=== PATIENT | female | born 1945 | race Caucasian/White ===

== ENCOUNTER → 2016-12-20 | Outpatient (CLI) | payer OTHER ==
[~2016-12-20] MED LIST: LEVO50TA7 PO; SIMV10TA84 PO
[2016-12-20 11:42] LABS: INR 1.01 (0.9-1.15); Prothrombin Time 10.4 sec (9.37-12.3)
[2016-12-20 11:43] LABS: Basophils # (auto) 0 uL; Basophils % (auto) 0.6 % (0.0-2.0); Eosinophils # (auto) 0.3 uL; Eosinophils % (auto) 4.1 % (0.0-7.0); Hematocrit 42.8 % (36.0-46.0); Hemoglobin 14.1 g/dL (12.2-16.2); Lymphocytes # (auto) 2.7 uL; Lymphocytes % (auto) 42.6 % (10.0-50.0); Mean Corpuscular Hemoglobin 30.9 pg (28.0-32.0); Mean Corpuscular Hgb Conc. 32.8 g/dL (32.0-36.0); Mean Platelet Volume 9.4 fL (7.4-10.4); Monocytes # (auto) 0.4 uL; Monocytes % (auto) 6.5 % (0.0-12.0); Neutrophils # (auto) 2.9 uL; Neutrophils % (auto) 46.2 % (37.0-80.0); Platelet Count (auto) 201 10^3/uL (140-450); Red Cell Distribution Width 14.1 % (11.6-16.0); White Blood Cell 6.2 10^3/uL (4.4-10.8)
[2016-12-20 11:53] LABS: Urine Bilirubin Negative (Negative); Urine Color Yellow (Yellow); Urine Glucose Normal (Normal); Urine Ketone Negative (Negative); Urine Nitrite Negative (Negative); Urine RBC 1 /hpf (0 - 4); Urine Squamous Epithelial Cell FEW /hpf (<5); Urine Urobilinogen Normal (Negative); Urine pH 5.5 (5.0-8.0)
[2016-12-20 11:54] LABS: Urine Blood 1+ /uL (Negative)
[2016-12-20 12:13] LABS: Albumin 3.4 g/dL (3.4-5.0); BUN/Creatinine Ratio 9.9; Bilirubin, Total 0.5 mg/dL (0.2-1.0); Potassium 4.2 mmol/L (3.5-5.1); Total Protein 7.1 g/dL (6.4-8.2)
== END | disposition home or self-care (01) ==
LOC: LAB 08:06
PROVIDERS: ATTEND Internal Medicine
DX: Z00.00 Encounter for general adult medical examination without abnormal findings (principal); E78.2 Mixed hyperlipidemia; I10 Essential (primary) hypertension; E55.9 Vitamin D deficiency, unspecified
CPT/HCPCS: 36415; 80053; 80061; 81001; 82306; 84443; 85025; 85610; 85730

== ENCOUNTER → 2017-01-22 | Outpatient (CLI) | payer OTHER | LOC: XYW 10:38 | PROVIDERS: ATTEND Internal Medicine | DX: I51.7 Cardiomegaly (principal); I35.0 Nonrheumatic aortic (valve) stenosis | CPT/HCPCS: 93306 ==

== ENCOUNTER → 2017-02-11 | Outpatient (CLI) | payer OTHER ==
[2017-02-11 11:33] LABS: Urine Bilirubin Negative (Negative); Urine Blood Negative /uL (Negative); Urine Color Yellow (Yellow); Urine Glucose Normal (Normal); Urine Ketone Negative (Negative); Urine Nitrite Negative (Negative); Urine RBC 1 /hpf (0 - 4); Urine Urobilinogen Normal (Negative); Urine pH 6.5 (5.0-8.0)
== END | disposition home or self-care (01) ==
LOC: LAB 10:16
PROVIDERS: ATTEND Internal Medicine
DX: N39.0 Urinary tract infection, site not specified (principal)
CPT/HCPCS: 81001

== ENCOUNTER → 2017-03-05 | Outpatient (CLI) | payer OTHER ==
[~2017-03-05] MED LIST changes: +LORA-354 PO; +NAPR220C PO
[2017-03-05 09:34] LABS: Basophils # (auto) 0 uL; Basophils % (auto) 0.9 % (0.0-2.0); Eosinophils # (auto) 0.3 uL; Eosinophils % (auto) 5.5 % (0.0-7.0); Hematocrit 43.5 % (36.0-46.0); Hemoglobin 14.5 g/dL (12.2-16.2); Lymphocytes # (auto) 1.8 uL; Lymphocytes % (auto) 32.2 % (10.0-50.0); Mean Corpuscular Hemoglobin 31.5 pg (28.0-32.0); Mean Corpuscular Hgb Conc. 33.2 g/dL (32.0-36.0); Mean Platelet Volume 9.1 fL (7.4-10.4); Monocytes # (auto) 0.4 uL; Monocytes % (auto) 6.9 % (0.0-12.0); Neutrophils # (auto) 3.1 uL; Neutrophils % (auto) 54.5 % (37.0-80.0); Platelet Count (auto) 180 10^3/uL (140-450); Red Cell Distribution Width 13.5 % (11.6-16.0); White Blood Cell 5.7 10^3/uL (4.4-10.8)
[2017-03-05 09:48] LABS: INR 0.96 (0.9-1.15); Partial Thromboplastin Time 24.3 sec (22.64-33.71); Prothrombin Time 10.4 sec (9.37-12.3)
[2017-03-05 10:10] LABS: Albumin 3.5 g/dL (3.4-5.0); BUN/Creatinine Ratio 12.7; Bilirubin, Total 0.5 mg/dL (0.2-1.0); Calcium 8.5 mg/dL (8.5-10.1); Potassium 4.1 mmol/L (3.5-5.1); Total Protein 7.1 g/dL (6.4-8.2)
== END | disposition home or self-care (01) ==
LOC: LAB 08:28
PROVIDERS: ATTEND Internal Medicine Cardiovascular Disease
DX: Z01.810 Encounter for preprocedural cardiovascular examination (principal); I35.2 Nonrheumatic aortic (valve) stenosis with insufficiency
CPT/HCPCS: 36415; 80053; 85025; 85610; 85730

== ENCOUNTER → 2017-03-08 | Day surgery (SDC) | payer OTHER ==
[~2017-03-08] VITALS: Ht 165.1 cm; Wt 93.0 kg
[~2017-03-08] MED LIST changes: +ANGIOMAX 250 MG VIAL IV ONE; +ATROPINE SULF 0.5 MG/5ML SYR ONE; +IODIXANOL 320MG/ML 100ML BTL IV ONE; +LIDOCAINE 2%HCL (LOCAL ANESTH.) INJ 20ML MDV ONE; +MIDAZOLAM HCL 1MG/1ML-2 ML VIAL ONE; +ONDANSETRON HCL 4 MG/2 ML VIAL IV ONE; +SODIUM CHL 0.9% 0 ML ONE; +diphenhdrAMINE HCL 50 MG/1 ML VL ONE; +fentaNYL CITRATE 100 MCG/2 ML VL ONE
== END | disposition home or self-care (01) ==
LOC: CATH 07:49
PROVIDERS: ATTEND Internal Medicine Cardiovascular Disease
DX: I35.0 Nonrheumatic aortic (valve) stenosis (principal); I35.1 Nonrheumatic aortic (valve) insufficiency; Z87.891 Personal history of nicotine dependence; E66.9 Obesity, unspecified; N28.9 Disorder of kidney and ureter, unspecified; Z90.5 Acquired absence of kidney
CPT/HCPCS: 93458; C1751; C1760; C1769; C1894; J0461; J1200; J1644; J2250; J3010; Q9967; 99152

== ENCOUNTER → 2017-07-09 | Outpatient (CLI) | payer OTHER ==
[~2017-07-09] MED LIST changes: -ANGIOMAX 250 MG VIAL IV ONE; -ATROPINE SULF 0.5 MG/5ML SYR ONE; -IODIXANOL 320MG/ML 100ML BTL IV ONE; -LIDOCAINE 2%HCL (LOCAL ANESTH.) INJ 20ML MDV ONE; -MIDAZOLAM HCL 1MG/1ML-2 ML VIAL ONE; -ONDANSETRON HCL 4 MG/2 ML VIAL IV ONE; -SODIUM CHL 0.9% 0 ML ONE; -diphenhdrAMINE HCL 50 MG/1 ML VL ONE; -fentaNYL CITRATE 100 MCG/2 ML VL ONE
[2017-07-09 13:53] LABS: Basophils # (auto) 0.1 uL; Basophils % (auto) 1.1 % (0.0-2.0); Eosinophils # (auto) 0.2 uL; Eosinophils % (auto) 3.9 % (0.0-7.0); Hemoglobin 14.3 g/dL (12.2-16.2); Lymphocytes # (auto) 2.2 uL; Lymphocytes % (auto) 34.9 % (10.0-50.0); Mean Corpuscular Hemoglobin 31.2 pg (28.0-32.0); Mean Corpuscular Hgb Conc. 33.2 g/dL (32.0-36.0); Mean Corpuscular Volume 93.9 fL (80.0-100.0); Mean Platelet Volume 8.2 fL (6.9-10.8); Monocytes # (auto) 0.5 uL; Monocytes % (auto) 8.2 % (0.0-12.0); Neutrophils # (auto) 3.3 uL; Neutrophils % (auto) 51.9 % (37.0-80.0); Nucleated Red Blood Cells % 0.1 %; Platelet Count (auto) 186 10^3/uL (140-450); Red Cell Distribution Width 13.9 % (11.8-14.3); White Blood Cell 6.3 10^3/uL (4.4-10.8)
[2017-07-09 14:08] LABS: Urine Bilirubin Negative (Negative); Urine Blood Negative /uL (Negative); Urine Color Yellow (Yellow); Urine Glucose Normal (Normal); Urine Ketone Negative (Negative); Urine Nitrite Negative (Negative); Urine RBC <1 /hpf (0 - 4); Urine Squamous Epithelial Cell FEW /hpf (<5); Urine Urobilinogen Normal (Negative)
[2017-07-09 14:09] LABS: INR 0.97 (0.9-1.15); Partial Thromboplastin Time 28.1 sec (22.64-33.71); Prothrombin Time 10.6 sec (9.37-12.3)
[2017-07-09 14:29] LABS: Albumin 3.5 g/dL (3.4-5.0); BUN/Creatinine Ratio 12.8; Bilirubin, Total 0.6 mg/dL (0.2-1.0); Calcium 8.9 mg/dL (8.5-10.1); Potassium 3.9 mmol/L (3.5-5.1); Total Protein 7.5 g/dL (6.4-8.2)
== END | disposition home or self-care (01) ==
LOC: LAB 13:21
PROVIDERS: ATTEND Internal Medicine
DX: Z01.818 Encounter for other preprocedural examination (principal); R79.1 Abnormal coagulation profile
CPT/HCPCS: 36415; 80053; 81001; 85025; 85610; 85730

== ENCOUNTER → 2017-11-04 | Outpatient (CLI) | payer OTHER ==
[2017-11-04 11:09] LABS: Basophils # (auto) 0.1 uL; Basophils % (auto) 1.1 % (0.0-2.0); Eosinophils # (auto) 0.2 uL; Eosinophils % (auto) 3.3 % (0.0-7.0); Hematocrit 46.4 % (36.0-46.0); Hemoglobin 15.2 g/dL (12.2-16.2); Lymphocytes # (auto) 1.7 uL; Lymphocytes % (auto) 33.3 % (10.0-50.0); Mean Corpuscular Hgb Conc. 32.8 g/dL (32.0-36.0); Mean Corpuscular Volume 94.5 fL (80.0-100.0); Monocytes # (auto) 0.3 uL; Monocytes % (auto) 6.9 % (0.0-12.0); Neutrophils # (auto) 2.8 uL; Neutrophils % (auto) 55.4 % (37.0-80.0); Nucleated Red Blood Cells % 0.2 %; Platelet Count (auto) 187 10^3/uL (140-450); Red Blood Cells 4.91 10^6/uL (4.0-5.20); Red Cell Distribution Width 14.4 % (11.8-14.3)
[2017-11-04 11:45] LABS: Albumin 3.7 g/dL (3.4-5.0); BUN/Creatinine Ratio 9.7; Bilirubin, Total 0.6 mg/dL (0.2-1.0); Calcium 9.1 mg/dL (8.5-10.1); Potassium 4.4 mmol/L (3.5-5.1); Total Protein 7.8 g/dL (6.4-8.2)
== END ==
LOC: LAB 10:33
PROVIDERS: ATTEND Internal Medicine
DX: R79.89 Other specified abnormal findings of blood chemistry (principal); Z90.49 Acquired absence of other specified parts of digestive tract; Z90.710 Acquired absence of both cervix and uterus
CPT/HCPCS: 36415; 80053; 80061; 82270; 84443; 85025

== ENCOUNTER → 2017-11-12 | Outpatient (CLI) | payer OTHER | END | disposition home or self-care (01) | LOC: XYW 08:38 | DX: I11.9 Hypertensive heart disease without heart failure (principal) | CPT/HCPCS: 93306 ==

== ENCOUNTER 2022-05-12 16:51 | Emergency (ER) | payer OTHER ==
[~2022-05-12] VITALS: Ht 162.6 cm; Wt 91.0 kg
[2022-05-12 19:50] LABS: Basophils # (auto) 0 10 ^3/uL (0-0.2); Basophils % (auto) 0.5 % (0.0-2.0); Eosinophils # (auto) 0.1 10 ^3/uL (0-0.8); Eosinophils % (auto) 1.1 % (0.0-7.0); Hematocrit 46.1 % (36.0-46.0); Hemoglobin 14.9 g/dL (12.2-16.2); Lymphocytes # (auto) 1.3 10 ^3/uL (0.4-5.4); Lymphocytes % (auto) 14.5 % (10.0-50.0); Mean Corpuscular Hemoglobin 30.9 pg (28.0-32.0); Mean Corpuscular Hgb Conc. 32.4 g/dL (32.0-36.0); Mean Corpuscular Volume 95.4 fL (80.0-100.0); Monocytes # (auto) 0.4 10 ^3/uL (0-1.3); Monocytes % (auto) 4.7 % (0.0-12.0); Neutrophils # (auto) 7.2 10 ^3/uL (1.6-8.6); Neutrophils % (auto) 79.2 % (37.0-80.0); Nucleated Red Blood Cells % 0.1 %; Red Blood Cells 4.83 10^6/uL (4.0-5.20); Red Cell Distribution Width 13.6 % (11.8-14.3); White Blood Cell 9.1 10^3/uL (4.4-10.8)
[2022-05-12 20:00] LABS: Urine Bacteria FEW /hpf (None Seen); Urine Blood Negative /uL (Negative); Urine Specific Gravity 1.004 (1.001-1.035); Urine WBC 21 /hpf (0 - 5)
[2022-05-12 20:07] LABS: Alanine Aminotransferase 19 U/L (13-56); Albumin 3.5 g/dL (3.4-5.0); Anion Gap 8 (5-15); Aspartate Aminotransferase 18 U/L (15-37); BUN/Creatinine Ratio 8.4; Blood Urea Nitrogen 8 mg/dL (7-18); Carbon Dioxide 26 mmol/L (21-32); Chloride 110 mmol/L (98-107); GFR African American 73 mL/min; GFR Non-African American 60 mL/min; Glucose 128 mg/dL (74-106); Potassium 4.1 mmol/L (3.5-5.1); Sodium 144 mmol/L (136-145)
[2022-05-12 20:10] LABS: Alkaline Phosphatase 133 U/L (45-117); Bilirubin, Total 0.4 mg/dL (0.2-1.0); Total Protein 7.3 g/dL (6.4-8.2)
[2022-05-12 21:30] VITALS: BP 156/55
[2022-05-12] MEDS ORDERED: CEPH-509 PO (21:40)
== END 2022-05-12 22:09 | disposition home or self-care (01) ==
LOC: ER 16:51 → EDBD 16:51 → ER 22:09
DX: R53.1 Weakness (principal); N39.0 Urinary tract infection, site not specified; I10 Essential (primary) hypertension; I25.2 Old myocardial infarction; E03.9 Hypothyroidism, unspecified; Z90.49 Acquired absence of other specified parts of digestive tract; Z90.710 Acquired absence of both cervix and uterus; Z90.89 Acquired absence of other organs; Z86.73 Personal history of transient ischemic attack (TIA), and cerebral infarction without residual deficits; Z79.899 Other long term (current) drug therapy
CPT/HCPCS: 36415; 71045; 80053; 81001; 84484; 85025; 93005

== ENCOUNTER 2023-06-15 14:12 | Emergency (ER) | payer OTHER ==
[~2023-06-15] VITALS: Ht 165.1 cm; Wt 86.3 kg
[~2023-06-15 14:12] MED LIST changes: +CEPH-509 PO; +SIMV10TA20 PO; -SIMV10TA84 PO
[2023-06-15 14:28] VITALS: BP 117/65; PULSE 71
[2023-06-15 14:43] VITALS: RESP 18
[2023-06-15] MEDS ORDERED: cefTRIAXone SOD 1,000 MG VL IM ONE (16:30)
[2023-06-15] MEDS ORDERED: LEVO500T91 PO (16:41)
[2023-06-15] MEDS ORDERED: PRED20TA2 PO (16:41)
[2023-06-15] MEDS ORDERED: PROM1SOL4 PO (16:41)
[2023-06-15 16:59] VITALS: O2SAT 98
== END 2023-06-15 16:59 | disposition home or self-care (01) ==
LOC: ER 14:12
DX: J20.9 Acute bronchitis, unspecified (principal); J03.90 Acute tonsillitis, unspecified; I10 Essential (primary) hypertension; I25.2 Old myocardial infarction; E03.9 Hypothyroidism, unspecified; Z86.73 Personal history of transient ischemic attack (TIA), and cerebral infarction without residual deficits; Z90.49 Acquired absence of other specified parts of digestive tract; Z90.710 Acquired absence of both cervix and uterus; Z90.89 Acquired absence of other organs
CPT/HCPCS: 71046; 96372; 99283; J0696

== ENCOUNTER 2024-11-26 19:50 | Inpatient (IN) | payer OTHER ==
[~2024-11-26] VITALS: Ht 167.6 cm; Wt 87.0 kg
[~2024-11-26 19:50] MED LIST changes: +LEVO500T91 PO; +PRED20TA2 PO; +PROM1SOL4 PO
--- NOTE | 2024-11-26 20:47 | ED.PDOC ---
SOB-HPI HPI Comments Howard: HPI: Poor Historian. 79-year-old female presents to emergency department by ambulance from home for two day history of cough and nonspecific headache and fever of 100.4. Cough is nonproductive. Denies sick contacts. HPI: 79y F who presents to the ED via EMS for chief complaint of cough and headaches. Pt has the following course of events: -pt states she has been having cough with associated headache for the past 2 days with associated productive cough and noted pain with cough - pt states symptoms persisted since and called EMS - EMS brought pt to ED with no interventions performed -pt in the ED, has noted temp of 100.4F and BP noted to be 146/69 with all other vitals in normal range and pt in no noted respiratory distress and denies any recent sick contacts past medical history: bronchitis, HTN, hyperlipidemia past surgical history: nephrectomy medications: tramadol, Lipitor, Lasix, asa allergies: denies social history: denies tobacco use, denies ETOH use, denies drug use REVIEW OF SYSTEMS: CONSTITUTIONAL: Denies acute: fever, diaphoresis, chills, HEAD: Denies acute: , photophobia Eyes: Denies acute: Double vision, vision loss, eye pain, eye discharge. EARS: Denies acute: tinnitus, hearing loss, ear discharge, ear pain, THROAT: Denies acute: sore throat, swelling, difficulty swallowing , pain with swallowing, change in voice. NECK: Denies acute: neck pain, neck swelling, stiff neck. HEART: Denies acute : chest pain, palpitations, LUNGS: Denies acute: SOB, wheezing, , hemoptysis ABDOMEN: Denies acute: abdominal pain, Nausea, Vomiting, diarrhea, melena , hematemesis, hematochezia SKIN: Denies acute: rash, redness, lesions, itchiness. EXTREMITIES: Denies acute: calf pain, numbness, tingling, weakness, denies pain in extremity. Denies acute: Low back pain. Neuro: Denies acute: focal neurological deficit, motor or sensory focal neurological deficit, tremors, seizure like activity, confusion, dizziness, change in mental status, loss of bowel or bladder function, cauda equina like symptoms. : Denies acute: dysuria, hematuria, flank pain, increase in urinary frequency. PSYCH: Denies acute: hallucination, suicidal ideation, homicidal ideation. FEMALE: Denies acute: abnormal vaginal bleeding, foul odor, unusual discharge. PHYSICAL EXAM: General: no acute distress, awake and alert. Head: normocephalic, atraumatic. Neck: supple, trachea is midline, no swelling. Throat: Normal phonation. Eyes:, no erythema, no purulent discharge, no proptosis, no icterus. Heart: regular rate, regular rhythm, no significant murmur appreciated. Lungs: no apparent respiratory distress, Able to speak in full sentences. No wheezing, no rhonchi, no crackles. No stridors Clear to auscultation bilaterally. Abdomen: non tender to palpation, non distended, soft, no guarding, no rebound, + bowel sounds. Neuro: Awake, Alert, oriented to name, self, situation, follows commands GCS=15. Speech is normal. Skin: no petechia, no purpura, no cyanosis, non-pale, not jaundice. Lower extremities: --no - Pitting edema no deformity, no focal swelling, no calf TTP. Makes eye contact. moves all four extremities. Face: no apparent facial droop. ED COURSE: Chief Complaint: Flu like Time Seen by MD: 20:04 Reviewed notes: Nurses Notes, Allergies Information Source: Patient, Emergency Med Personnel Mode of Arrival: EMS Past Medical History PAST MEDICAL HISTORY: High Lipids, HTN SAMPLE PASTER History: Denies all SAMPLE PASTER Hx Family History Family History: Reviewed,noncontributory to illness Social History Smoker: Non-Smoker Alcohol: Denies ETOH Use Drugs: Denies Drug Use Lives In: Home Was a procedure done? Was a procedure done?: No Differential Dx Differential Diagnosis: Other (DDx include ACS, unstable angina, anxiety, PE, pneumothroax, neoplasm, cardiac ischemia, COPD, asthma, CHF, pleural effusion, tobacco abuse, pneumonia, hypoxia, hypercapnia, anemia., infection/sepsis., pulmonary edema. Asthma, Cardiac tamponade, infection.) X-Ray, Labs, Meds, VS Vital Signs Date Time Temp Pulse Resp B/P (MAP) Pulse Ox O2 Delivery O2 Flow Rate FiO2 11/26/24 19:50 100.4 84 18 146/69 (94) 96 Lab Test 11/27/24 02:16 11/26/24 23:08 11/26/24 22:25 11/26/24 21:01 Range/Units Influenza Type A Antigen Negative Negative Influenza Type B Antigen Negative Negative SARS-CoV-2 Antigen (Rapid) Positive NEGATIVE Blood Gas Specimen Type Arterial Blood Gas Sample Site Right radial Blood Gas Patient Temperature 37.0 Arterial Blood Date Drawn [id number] Arterial Blood pH 7.495 H 7.350-7.450 Arterial Blood Partial Pressure CO2 26.3 L 32.0-45.0 mmHg Arterial Blood Partial Pressure O2 84.1 83.0-108.0 mmHg Arterial Blood HCO3 19.8 L 21.0-28.0 mmol/L Arterial Blood Oxygen Saturation 96.9 94.0-98.0 % Arterial Blood Base Excess -1.6 -2.0-3.0 mmol/L Arterial Blood Oxyhemoglobin 95.6 94.0-98.0 % Arterial Blood Carboxyhemoglobin 0.6 0.5-1.5 % Arterial Blood Methemoglobin 0.7 0.0-1.5 % Naresh Test Yes Blood Gas Total Hemoglobin 15.80 12.0-16.0 g/dL Blood Gas Modality Room air Blood Gas Spontaneous Rate 18 FiO2 % 21.0 Troponin I High Sensitivity 10 9 </=34 ng/L White Blood Count 6.4 4.4-10.8 10^3/uL Red Blood Count 4.88 4.0-5.20 10^6/uL Hemoglobin 15.6 12.2-16.2 g/dL Hematocrit 46.2 H 36.0-46.0 % Mean Corpuscular Volume 94.7 80.0-100.0 fL Mean Corpuscular Hemoglobin 32.0 28.0-32.0 pg Mean Corpuscular Hemoglobin Concent 33.8 32.0-36.0 g/dL Red Cell Distribution Width 13.8 11.8-14.3 % Platelet Count 110 L 140-450 10^3/uL Mean Platelet Volume 9.2 6.9-10.8 fL Neutrophils (%) (Auto) 80.5 H 37.0-80.0 % Lymphocytes (%) (Auto) 10.0 10.0-50.0 % Monocytes (%) (Auto) 9.0 0.0-12.0 % Eosinophils (%) (Auto) 0.1 0.0-7.0 % Basophils (%) (Auto) 0.4 0.0-2.0 % Neutrophils # (Auto) 5.2 1.6-8.6 10 ^3/uL Lymphocytes # (Auto) 0.6 0.4-5.4 10 ^3/uL Monocytes # (Auto) 0.6 0-1.3 10 ^3/uL Eosinophils # (Auto) 0 0-0.8 10 ^3/uL Basophils # (Auto) 0 0-0.2 10 ^3/uL Nucleated Red Blood Cells 0.2 % Sodium Level 139 136-145 mmol/L Potassium Level 3.6 3.5-5.1 mmol/L Chloride Level 107 98-107 mmol/L Carbon Dioxide Level 21 20-31 mmol/L Anion Gap 11 5-15 Blood Urea Nitrogen 7 L 9-23 mg/dL Creatinine 1.00 0.550-1.02 mg/dL Glomerular Filtration Rate Calc 57 >90 mL/min BUN/Creatinine Ratio 7.0 L 10.0-20.0 Serum Glucose 117 H 74-106 mg/dL Lactic Acid Level 1.2 0.4-2.0 mmol/L Calcium Level 9.7 8.7-10.4 mg/dL Magnesium Level 1.9 1.6-2.6 mg/dL Total Bilirubin 0.8 0.2-1.0 mg/dL Aspartate Amino Transferase (AST) 22 13-40 U/L Alanine Aminotransferase (ALT) 10 7-40 U/L Alkaline Phosphatase 129 H 46-116 U/L B-Type Natriuretic Peptide 123.75 0-100 pg/mL Total Protein 7.2 5.7-8.2 g/dL Albumin 4.4 3.2-4.8 g/dL [place] [address] Ph: [phone] DIAGNOSTIC IMAGING Diagnostic Imaging Report : [id number] Signed PATIENT: ANTONIO HOWARD ACCT: [id number] UNIT: [id number] : 1945 LOC: ER ROOM / BED: / AGE / SEX: 79 / F ADM STATUS: REG ER SERVICE 16 ORDERING PHYSICIAN: MAGGIE VALENTIN DO PROCEDURE(s): CXRP - CHEST PORTABLE REASON: cough fever weak ORDER NUMBER(s): [id number], ACCESSION NUMBER(s): [id number] CHEST RADIOGRAPH Indication: cough fever weak Technique: Single frontal view of the chest was obtained COMPARISON: CHEST PORTABLE on DOS: 06/15/23 FINDINGS: Lines and Tubes: Prior sternotomy and aortic valve replacement. Lungs: Clear. Pleura: No effusion. No pneumothorax. Cardiomediastinal contours: Unremarkable Bones: Unremarkable IMPRESSION: No acute disease. ATED BY: BEAR SAWYER MD DICTATED DATE/TIME: 11/26/242102 SIGNED BY: BEAR SAWYER MD SIGNED DATE/TIME: 11/26/242102 CC: Time of 1ST Reevaluation: 04:04 Reevaluation 1ST: Unchanged Patient Education/Counseling: Diagnosis, Treatment Family Education/Counseling: No Family Present Comments Patient presented with the above HPI.---respiratory---workup was initiated. patient was found with the above mentioned diagnosis. the following medications were ordered: please refer to order lists of meds and tests obtained by myself Dr. Valentin. Patient ED course and VS have been stabilized. Patient has been reassessed in the ED and remained in a stable condition. Pertinent incidental findings were discussed with the patient and/or family. Patient/family voices understanding and is agreeable with plan. Patient has been observed in the ED adequate length of time to insure improvement/stability. Escalation of care considered: Consideration of escalation to observation or admission Patient was ADMITTED to the medicine team for further evaluation and treatment of their presentation. All the reports of any imaging studies that were ordered by myself were reviewed by myself. Departure 1 Departure Time of Disposition: 03:39 Impression: Primary Impression: Dyspnea Additional Impression: COVID-19 virus detected Disposition: ADMITTED INPATIENT Admit to: Tele Condition: Guarded Discharged With: Self Critical Care Note Critical Care Time?: No Heart Score Heart Score: Heart Score Response (Comments) Value History Slightly Suspicious 0 EKG Normal 0 Age >65 2 Risk Factors 1 or 2 risk factors 1 Troponin Normal limit 0 Total 3 I personally scribed for MAGGIE VALENTIN DO ([email or web address]) on 11/26/24 at 20:47. Electronically submitted by Kevan Swift ([email or web address]). I personally scribed for MAGGIE VALENTIN DO ([facility]) on 11/26/24 at 21:36. Electronically submitted by Kevan Swift ([facility] MAGGIE VALENTIN DO Nov 26, 2024 20:47
--- NOTE | 2024-11-26 21:05 | DVH ---
CHEST RADIOGRAPH Indication: cough fever weak Technique: Single frontal view of the chest was obtained COMPARISON: CHEST PORTABLE on DOS: 06/15/23 FINDINGS: Lines and Tubes: Prior sternotomy and aortic valve replacement. Lungs: Clear. Pleura: No effusion. No pneumothorax. Cardiomediastinal contours: Unremarkable Bones: Unremarkable IMPRESSION: No acute disease.
[2024-11-26 21:20] LABS: Basophils # (auto) 0 10 ^3/uL (0-0.2); Basophils % (auto) 0.4 % (0.0-2.0); Eosinophils # (auto) 0 10 ^3/uL (0-0.8); Eosinophils % (auto) 0.1 % (0.0-7.0); Hematocrit 46.2 % (36.0-46.0); Hemoglobin 15.6 g/dL (12.2-16.2); Lymphocytes # (auto) 0.6 10 ^3/uL (0.4-5.4); Mean Corpuscular Hgb Conc. 33.8 g/dL (32.0-36.0); Mean Corpuscular Volume 94.7 fL (80.0-100.0); Monocytes # (auto) 0.6 10 ^3/uL (0-1.3); Neutrophils # (auto) 5.2 10 ^3/uL (1.6-8.6); Neutrophils % (auto) 80.5 % (37.0-80.0); Nucleated Red Blood Cells % 0.2 %; Platelet Count (auto) 110 10^3/uL (140-450); Red Blood Cells 4.88 10^6/uL (4.0-5.20); Red Cell Distribution Width 13.8 % (11.8-14.3); White Blood Cell 6.4 10^3/uL (4.4-10.8)
[2024-11-26 21:33] LABS: Alanine Aminotransferase 10 U/L (7-40); Calcium 9.7 mg/dL (8.7-10.4); Carbon Dioxide 21 mmol/L (20-31); Chloride 107 mmol/L (98-107)
[2024-11-26 21:34] LABS: Albumin 4.4 g/dL (3.2-4.8); Anion Gap 11 (5-15); Aspartate Aminotransferase 22 U/L (13-40); Bilirubin, Total 0.8 mg/dL (0.2-1.0); Magnesium 1.9 mg/dL (1.6-2.6); Potassium 3.6 mmol/L (3.5-5.1); Sodium 139 mmol/L (136-145); Total Protein 7.2 g/dL (5.7-8.2)
[2024-11-26 21:41] LABS: Alkaline Phosphatase 129 U/L (46-116); Blood Urea Nitrogen 7 mg/dL (9-23); Glucose 117 mg/dL (74-106)
[2024-11-26 23:35] VITALS: PULSE 62; RESP 16; O2SAT 96
[2024-11-27 00:02] LABS: Base Excess -1.6 mmol/L (-2.0-3.0)
[2024-11-27 03:32] LABS: COVID19 ANTIGEN SOFIA FIA POSITIVE (NEGATIVE); Rapid Influenza A Negative (Negative); Rapid Influenza B Negative (Negative)
--- NOTE | 2024-11-27 04:41 | DVHHP2 ---
History of Present Illness Reason for Visit: COVID-19 viral infection History of Present Illness The patient is a 79-year-old female with past medical history of bronchitis, hypertension, hyperlipidemia, and thyroid disease who presented to [facility] ED accompanied by daughter with complaint of shortness of breaths. Patient reports symptoms progressively get worse with nonproductive cough headache, fever, getting worse that prompted this visit. Patient was seen and evaluated in the ED, laboratory data shows WBC is 6.4, platelets 110, sodium 139, potassium 3.6, BUN 7, creatinine 1.00, GFR 57, glucose 117, troponin 10, BNP 123.75, blood pressure 146/69, heart rate 84, temperature 100.4 F, O2 saturation 96% on oxygen. Serology reports positive for COVID viral infection. Chest x-ray show no acute cardiopulmonary process. Please see medication orders section in the computer. On my assessment, patient denied chest pain, no headache, no dizziness, no diaphoresis, currently on oxygen, no nausea, no vomiting, no fever, no chills. Patient was admitted for further evaluation and medical management. Past Medical History Bronchitis, HTN, hyperlipidemia, thyroid disease. Past Surgical History Nephrectomy Family History Reviewed, noncontributory to the management of this case. Past Social History The patient lives at home, denies smoking, alcohol or illicit drugs abuse. Review of Systems Constitutional: Yes: Fever, Weakness; No: Chills, Sweats, Malaise, Other Eyes: No: Pain, Vision change, Conjunctivae inflammation, Eyelid inflammation, Other, Redness ENT: No: Ear pain, Ear discharge, Nose pain, Nose discharge, Nose congestion, Mouth pain, Mouth swelling, Throat pain, Throat swelling, Other Respiratory: Cough, Shortness of breath; No: Dry, SOB with excertion, Wheezing, Hemoptysis, Pleuritic Pain, Sputum, Wheezing, Other Cardiovascular: No: Chest Pain, Palpitations, Orthopnea, Paroxysmal Noc. Dyspnea, Edema, Lt Headedness, Other Gastrointestinal: No: Nausea, Vomiting, Abdominal Pain, Diarrhea, Constipation, Melena, Hematochezia, Other Genitourinary: No Dysuria, No Frequency, No Incontinence, No Hematuria, No Retention, No Other Musculoskeletal: No: other, neck pain, shoulder pain, arm pain, back pain, hand pain, leg pain, foot pain Skin: No: Rash, Lesions, Jaundice, Bruising, Other Neurological: No: Weakness, Numbness, Incoordination, Change in speech, Confusion, Seizures, Other Allergies: Coded Allergies: NO KNOWN ALLERGIES (Unverified , 08/20/23) Medications Current Medications Medications Dose Ordered Sig/Yenni Route Start Time Stop Time Status Last Admin Dose Admin Zinc Sulfate 220 mg DAILY PO 11/27/24 10:00 UNV Albuterol 90 mcg TIDPRN PRN IN 11/27/24 04:45 UNV Budesonide 360 mcg BID IN 11/27/24 10:00 UNV Dexamethasone Sodium Phosphate 6 mg DAILY IV 11/27/24 10:00 12/07/24 09:59 UNV Enoxaparin Sodium 40 mg DAILY SC 11/27/24 10:00 UNV Sodium Chloride 10 ml Q8HR IV 11/27/24 06:00 UNV Acetaminophen/ Hydrocodone Bitart 1 tab Q4HP PRN PO 11/27/24 04:45 UNV Ondansetron HCl 4 mg Q4HP PRN IV 11/27/24 04:45 UNV Docusate Sodium 100 mg BIDPRN PRN PO 11/27/24 04:45 UNV Ascorbic Acid 500 mg BID PO 11/27/24 10:00 UNV Multivitamins 1 tab DAILY PO 11/27/24 10:00 UNV Acetaminophen 650 mg Q6HP PRN PO 11/27/24 04:45 UNV Nitroglycerin 0.4 mg Q5MINP PRN SL 11/27/24 04:45 UNV Morphine Sulfate 2 mg Q30M PRN IV 11/27/24 04:45 UNV Exam Vital Signs Vital Signs Date Time Temp Pulse Resp B/P (MAP) Pulse Ox O2 Delivery O2 Flow Rate FiO2 11/27/24 04:22 Room Air* 0 21 11/26/24 19:50 100.4 84 18 146/69 (94) 96 General Appearance: Alert, Oriented X3, Cooperative, No acute distress HEENT: Atraumatic, PERRLA, EOMI, Mucous membr. moist/pink Respiratory: Clear to auscultation, Normal air movement Cardiovascular: Regular rate, Normal S1, Normal S2, No murmurs Abdominal: Normal bowel sounds, Soft, No tenderness, No hepatospenomegaly, No masses Extremities: No clubbing, No cyanosis, No edema, Normal pulses, No tenderness/swelling Skin: No rashes, No breakdown, No significant lesion Neuro: Normal speech, Normal tone, Sensation intact, Cranial nerves 3-12 NL, Reflexes 2+, Other (Generalized weakness) Psych/Mental Status: Mental status NL, Mood NL Labs/Xrays Labs Test 11/27/24 02:16 11/26/24 23:08 11/26/24 22:25 11/26/24 21:01 Range/Units Influenza Type A Antigen Negative Negative Influenza Type B Antigen Negative Negative SARS-CoV-2 Antigen (Rapid) Positive NEGATIVE Blood Gas Specimen Type Arterial Blood Gas Sample Site Right radial Blood Gas Patient Temperature 37.0 Arterial Blood Date Drawn [id number] Arterial Blood pH 7.495 H 7.350-7.450 Arterial Blood Partial Pressure CO2 26.3 L 32.0-45.0 mmHg Arterial Blood Partial Pressure O2 84.1 83.0-108.0 mmHg Arterial Blood HCO3 19.8 L 21.0-28.0 mmol/L Arterial Blood Oxygen Saturation 96.9 94.0-98.0 % Arterial Blood Base Excess -1.6 -2.0-3.0 mmol/L Arterial Blood Oxyhemoglobin 95.6 94.0-98.0 % Arterial Blood Carboxyhemoglobin 0.6 0.5-1.5 % Arterial Blood Methemoglobin 0.7 0.0-1.5 % Naresh Test Yes Blood Gas Total Hemoglobin 15.80 12.0-16.0 g/dL Blood Gas Modality Room air Blood Gas Spontaneous Rate 18 FiO2 % 21.0 Troponin I High Sensitivity 10 </=34 ng/L White Blood Count 6.4 4.4-10.8 10^3/uL Red Blood Count 4.88 4.0-5.20 10^6/uL Hemoglobin 15.6 12.2-16.2 g/dL Hematocrit 46.2 H 36.0-46.0 % Mean Corpuscular Volume 94.7 80.0-100.0 fL Mean Corpuscular Hemoglobin 32.0 28.0-32.0 pg Mean Corpuscular Hemoglobin Concent 33.8 32.0-36.0 g/dL Red Cell Distribution Width 13.8 11.8-14.3 % Platelet Count 110 L 140-450 10^3/uL Mean Platelet Volume 9.2 6.9-10.8 fL Neutrophils (%) (Auto) 80.5 H 37.0-80.0 % Lymphocytes (%) (Auto) 10.0 10.0-50.0 % Monocytes (%) (Auto) 9.0 0.0-12.0 % Eosinophils (%) (Auto) 0.1 0.0-7.0 % Basophils (%) (Auto) 0.4 0.0-2.0 % Neutrophils # (Auto) 5.2 1.6-8.6 10 ^3/uL Lymphocytes # (Auto) 0.6 0.4-5.4 10 ^3/uL Monocytes # (Auto) 0.6 0-1.3 10 ^3/uL Eosinophils # (Auto) 0 0-0.8 10 ^3/uL Basophils # (Auto) 0 0-0.2 10 ^3/uL Nucleated Red Blood Cells 0.2 % Sodium Level 139 136-145 mmol/L Potassium Level 3.6 3.5-5.1 mmol/L Chloride Level 107 98-107 mmol/L Carbon Dioxide Level 21 20-31 mmol/L Anion Gap 11 5-15 Blood Urea Nitrogen 7 L 9-23 mg/dL Creatinine 1.00 0.550-1.02 mg/dL Glomerular Filtration Rate Calc 57 >90 mL/min BUN/Creatinine Ratio 7.0 L 10.0-20.0 Serum Glucose 117 H 74-106 mg/dL Lactic Acid Level 1.2 0.4-2.0 mmol/L Calcium Level 9.7 8.7-10.4 mg/dL Magnesium Level 1.9 1.6-2.6 mg/dL Total Bilirubin 0.8 0.2-1.0 mg/dL Aspartate Amino Transferase (AST) 22 13-40 U/L Alanine Aminotransferase (ALT) 10 7-40 U/L Alkaline Phosphatase 129 H 46-116 U/L B-Type Natriuretic Peptide 123.75 0-100 pg/mL Total Protein 7.2 5.7-8.2 g/dL Albumin 4.4 3.2-4.8 g/dL PATIENT: ANTONIO MCCALLUM ACCT: [id number] UNIT: [id number] : 1945 LOC: ER ROOM / BED: / AGE / SEX: 79 / F ADM STATUS: REG ER SERVICE 16 ORDERING PHYSICIAN: MAGGIE VALENTIN DO PROCEDURE(s): CXRP - CHEST PORTABLE REASON: cough fever weak ORDER NUMBER(s): [id number], ACCESSION NUMBER(s): [id number] CHEST RADIOGRAPH Indication: cough fever weak Technique: Single frontal view of the chest was obtained COMPARISON: CHEST PORTABLE on DOS: 06/15/23 FINDINGS: Lines and Tubes: Prior sternotomy and aortic valve replacement. Lungs: Clear. Pleura: No effusion. No pneumothorax. Cardiomediastinal contours: Unremarkable Bones: Unremarkable IMPRESSION: No acute disease. ORDERING PHYSICIAN: ATILIO DOWLING DNP PROCEDURE(s): CXR2 - CHEST TWO VIEWS ROUTINE REASON: suspected Covid -19 pneumonia ORDER NUMBER(s): [id number], ACCESSION NUMBER(s): [id number] EXAM: XR Chest, 2 Views CLINICAL INDICATION: suspected Covid -19 pneumonia TECHNIQUE: Frontal and lateral views of the chest. COMPARISON: XY CHEST TWO VIEWS ROUTINE on DOS: 06/15/23 FINDINGS: LUNGS AND PLEURAL SPACES: Unremarkable. No consolidation. No pneumothorax. HEART: Unremarkable. No cardiomegaly. MEDIASTINUM: Unremarkable. Normal mediastinal contour. BONES/JOINTS: Unremarkable. No acute fracture. OTHER FINDINGS: None. IMPRESSION: No acute cardiopulmonary process. Assessment/Plan Assessment/Plan Dyspnea Acute respiratory distress COVID-19 virus infection Generalized weakness Plan 1. Admit to telemetry unit 2. Breathing treatment 3. Pain control management 4. IV antibiotic management 5. Management of fluids and electrolytes 6. Consultation for hospitalist 7. Diagnostic test chest x-ray 8. DVT prophylaxis-on Lovenox 9. Repeat labs CBC, CMP in a.m. 10. Home medication reviewed and reconciled 11. Continue with current medical management 12. Treatment plan discussed with patient and RN. Patient verbalized understanding. Plan discussed with: Patient, Daughter (At bedside), Other (RN) My Orders Orders - ATILIO DOWLING DNP Procedure Category Date Status Time Isolation Order ORDERS 11/27/24 Transmitted 04:33 Precautions RAMESH 11/27/24 In Process (Contact,Droplets, 04:33 D-Dimer LAB 11/27/24 Logged 04:33 Chest Two Views XY 11/27/24 Logged Routine 04:33 Zinc Sulfate PHA 11/27/24 Logged 10:00 Albuterol Inhaler PHA 11/27/24 Logged (Ventolin Hfa) 04:45 Oob To Chair RAMESH 11/27/24 In Process 04:33 Incentive Spirometry ORDERS 11/27/24 Transmitted Q 1hr 04:33 Corrosion Control Fitter ORDERS 11/27/24 Transmitted 04:33 Budesonide PHA 11/27/24 Logged (Inhalation) 10:00 Dexamethasone PHA 11/27/24 Logged Injection (Decadron 10:00 Enoxaparin Sodium PHA 11/27/24 Logged (Lovenox) 10:00 Admit ADMIT 11/27/24 Transmitted 04:33 Allergies RAMESH 11/27/24 In Process 04:33 Code Status CODE 11/27/24 Transmitted 04:33 Sodium Chloride Lock PHA 11/27/24 Logged (Saline Lock Ns) 06:00 Oxygen Per Hour RT 11/27/24 Transmitted 04:33 Hydrocodone-Acet PHA 11/27/24 Logged 5/325mg Tab (Hominy 04:45 Ondansetron Hcl PHA 11/27/24 Transmitted (Zofran) 04:45 Docusate Sodium PHA 11/27/24 Logged Capsule (Colace 04:45 Ascorbic Acid Tablet PHA 11/27/24 Logged (Vitamin C Tablet) 10:00 Multiple Vitamin PHA 11/27/24 Logged Tablet (Mvi Tab) 10:00 Fall Risk Precautions RAMESH 11/27/[address] 04:33 Complete Blood Count LAB 11/28/24 Verified 04:00 Comprehensive LAB 11/28/24 Verified Metabolic Panel 04:00 Cardiac DIET 11/27/24 Transmitted Diet-2gna,Lofat,Lochol Breakfast Condition: Serious RAMESH 11/27/24 In Process 04:33 Acetaminophen Tablet PHA 11/27/24 Logged (Tylenol Tablet) 04:45 Sequential RAMESH 11/27/24 In Process Compression Device Nitroglycerin PHA 11/27/24 Logged Sublingual (Ntrostat 04:45 Morphine Sulfate PHA 11/27/24 Logged Injection 04:45 Notify Of Changes RAMESH 11/27/24 In Process From Base 04:33 Corrosion Control Fitter For [facility] 11/27/24 In Process 24 Hours 04:33 Emergency Dysrhythmia RAMESH 11/27/24 In Process Protocol 04:33 Rhythm Strips Once RAMESH 11/27/24 In Process Every Shift 04:33 Oxygen By Nasal RT 11/27/24 Transmitted Cannula 04:33 Famotidine Injection PHA 11/27/24 Transmitted (Pepcid Injection) 10:00 Problem List: (1) Dyspnea (2) Acute respiratory distress (3) COVID-19 virus infection (4) Generalized weakness Date of Service: Nov 27, 2024 Billing Provider: ATILIO DOWLING DNP Common Visit Codes: [id number] INP/OBS CARE (HIGH) ATILIO DOWLING DNP Nov 27, 2024 04:41
[2024-11-27] MEDS ORDERED: DOCUSATE SOD 100 MG CAP PO PRN (04:45)
[2024-11-27] MEDS ORDERED: NITROGLYCERIN 0.4 MG SL TAB SL PRN (04:45)
[2024-11-27] MEDS ORDERED: MORPHINE SULFATE INJ 2 MG/ml SYRG IV PRN (04:45)
[2024-11-27] MEDS ORDERED: ONDANSETRON HCL 4 MG/2 ML VIAL IV PRN (04:45)
[2024-11-27] MEDS: cefTRIAXone 1GM/50ML D5W 50 ML IV ONE (04:46)
[2024-11-27] MEDS: DexAMETHasone SOD PHOS 10MG/1ML VIAL INJ IV ONE (04:46)
--- NOTE | 2024-11-27 05:27 | DVH ---
EXAM: XR Chest, 2 Views CLINICAL INDICATION: suspected Covid -19 pneumonia TECHNIQUE: Frontal and lateral views of the chest. COMPARISON: XY CHEST TWO VIEWS ROUTINE on DOS: 06/15/23 FINDINGS: LUNGS AND PLEURAL SPACES: Unremarkable. No consolidation. No pneumothorax. HEART: Unremarkable. No cardiomegaly. MEDIASTINUM: Unremarkable. Normal mediastinal contour. BONES/JOINTS: Unremarkable. No acute fracture. OTHER FINDINGS: . None. . . .. IMPRESSION: No acute cardiopulmonary process.
[2024-11-27] MEDS: SODIUM CHLOR 0.9% PF (SALINE LOCK) 10ML VIAL/SYR IV SCH (05:34)
[2024-11-27 08:00] VITALS: PULSE 59; RESP 12; O2SAT 93
[2024-11-27 08:22] VITALS: BP 138/50; PULSE 59; RESP 18; O2SAT 96
[2024-11-27 09:17] VITALS: PULSE 62; RESP 16; O2SAT 96
[2024-11-27] MEDS: BUDESONIDE (INHALATION) 180 MCG IH IN SCH (09:17)
[2024-11-27] MEDS: ENOXAPARIN SOD 40 MG/0.4 ML SYRINGE SC SCH (10:00)
[2024-11-27] MEDS: FAMOTIDINE (10MG/ML) 2ML VL IV SCH (10:27)
[2024-11-27] MEDS: DexAMETHasone SOD PHOS 10MG/1ML VIAL INJ IV SCH (10:27)
[2024-11-27] MEDS: ZINC SULFATE 220mg CAP or TAB PO SCH (10:28)
[2024-11-27] MEDS: ASCORBIC ACID 500 MG TAB PO SCH (10:28)
[2024-11-27] MEDS: MULTIPLE VITAMIN TAB PO SCH (10:29)
--- NOTE | 2024-11-27 12:43 | DVHPN2 ---
Reviewed: Care Plan, H&P, Labs, Medications, Previous Orders, Radiology Changes from previous H/P or p: No Changes Eyes: No Pain, No Vision change, No Conjunctivae inflammation, No Eyelid inflammation, No Other, No Redness ENT: No Ear pain, No Ear discharge, No Nose pain, No Nose discharge, No Nose congestion, No Mouth pain, No Mouth swelling, No Throat pain, No Throat swelling, No Other Cardiovascular: No Chest Pain, No Palpitations, No Orthopnea, No Paroxysmal Noc. Dyspnea, No Edema, No Lt Headedness, No Other Respiratory: Cough; No Dry; Shortness of breath; No SOB with excertion, No Wheezing, No Hemoptysis, No Pleuritic Pain, No Sputum, No Other Gastrointestinal: No Nausea, No Vomiting, No Abdominal Pain, No Diarrhea, No Constipation, No Melena, No Hematochezia, No Other Genitourinary: No Dysuria, No Frequency, No Incontinence, No Hematuria, No Retention, No Other Musculoskeletal: No other, No neck pain, No shoulder pain, No arm pain, No back pain, No hand pain, No leg pain, No foot pain Skin: No Rash, No Lesions, No Jaundice, No Bruising, No Other Objective Vitals Vital Signs Date Time Temp Pulse Resp B/P (MAP) Pulse Ox O2 Delivery O2 Flow Rate FiO2 11/27/24 11:00 62 24 133/85 (101) 96 11/27/24 09:17 Room Air* 0 21 11/27/24 08:00 98.5 98.5 Intake/Output Intake and Output 11/27/24 07:00 Intake Total 50 ml Balance 50 ml Intake IV Total 50 ml Medications Current Medications Medications Dose Ordered Sig/Yenni Route Start Time Stop Time Status Last Admin Dose Admin Zinc Sulfate 220 mg DAILY PO 11/27/24 10:00 11/27/24 10:28 220 MG Albuterol 90 mcg TIDPRN PRN IN 11/27/24 04:45 Budesonide 360 mcg BID IN 11/27/24 10:00 11/27/24 09:17 360 MCG Dexamethasone Sodium Phosphate 6 mg DAILY IV 11/27/24 10:00 12/07/24 09:59 11/27/24 10:27 6 MG Enoxaparin Sodium 40 mg DAILY SC 11/27/24 10:00 Sodium Chloride 10 ml Q8HR IV 11/27/24 06:00 11/27/24 05:34 10 ML Acetaminophen/ Hydrocodone Bitart 1 tab Q4HP PRN PO 11/27/24 04:45 Ondansetron HCl 4 mg Q4HP PRN IV 11/27/24 04:45 Docusate Sodium 100 mg BIDPRN PRN PO 11/27/24 04:45 Ascorbic Acid 500 mg BID PO 11/27/24 10:00 11/27/24 10:28 500 MG Multivitamins 1 tab DAILY PO 11/27/24 10:00 11/27/24 10:29 1 TAB Acetaminophen 650 mg Q6HP PRN PO 11/27/24 04:45 Nitroglycerin 0.4 mg Q5MINP PRN SL 11/27/24 04:45 Morphine Sulfate 2 mg Q30M PRN IV 11/27/24 04:45 Famotidine 20 mg DAILY IV 11/27/24 10:00 11/27/24 10:27 20 MG Laboratory Results Laboratory Tests 11/26/24 21:01 Chemistry Test 11/26/24 21:01 Albumin 4.4 g/dL (3.2-4.8) Calcium Level 9.7 mg/dL (8.7-10.4) Magnesium Level 1.9 mg/dL (1.6-2.6) Total Protein 7.2 g/dL (5.7-8.2) Coagulation Test 11/27/24 05:28 D-Dimer, Quantitative 0.99 mg/L FEU (0.0-0.49) H Cardiac Markers Test 11/26/24 21:01 B-Type Natriuretic Peptide 123.75 pg/mL (0-100) LFT Test 11/26/24 21:01 Alanine Aminotransferase (ALT) 10 U/L (7-40) Alkaline Phosphatase 129 U/L (46-116) H Aspartate Amino Transferase (AST) 22 U/L (13-40) Total Bilirubin 0.8 mg/dL (0.2-1.0) Blood Gas Results Test 11/26/24 23:08 Arterial Blood pH 7.495 (7.350-7.450) FiO2 % 21.0 Labs and/or images reviewed: Labs reviewed by me, Image(s) reviewed by me Assessment/Plan Assessment/Plan Acute Respiratory failure: Oxygen by nasal cannula COVID positive: Zinc vitamin-C vitamin med neb, dexamethasone Flu Test negative Possible community-acquired pneumonia: Doxycycline Hypertension Hypercholesterolemia Hypothyroidism Elevated D-dimer 0.99 CT chest angiogram rule out PE Time spent 55 minutes Plan discussed with: Patient Date of Service: Nov 27, 2024 Billing Provider: JC SAN MD Common Visit Codes: [id number] INP/OBS CARE(HIGH) JC SAN MD Nov 27, 2024 12:43
[2024-11-27] MEDS: DOXYCYCLINE 100MG/100ML 100 ML IV SCH (13:15)
[2024-11-27 20:09] VITALS: PULSE 78; RESP 18; O2SAT 96
[2024-11-27 23:26] VITALS: PULSE 68; RESP 18; O2SAT 99
[2024-11-27] MEDS: ALBUTEROL SULF HFA 90MCG INH 200DOSE IN PRN (23:26)
[2024-11-27 23:35] VITALS: PULSE 70; RESP 18
[2024-11-27] MEDS ORDERED: ATOR10TA52 PO (23:53)
[2024-11-27] MEDS ORDERED: MEMA1TAB3 PO (23:53)
[2024-11-27] MEDS ORDERED: TRAM50TA2 PO (23:53)
[2024-11-28] VITALS (13 sets, daily range): BP systolic 124–157; BP diastolic 62–76; PULSE 60–94; RESP 15–19; TEMP 97.8–98.6; O2SAT 94–100
[2024-11-28 06:01] LABS: Basophils # (auto) 0 10 ^3/uL (0-0.2); Basophils % (auto) 0.1 % (0.0-2.0); Eosinophils # (auto) 0 10 ^3/uL (0-0.8); Hematocrit 45.2 % (36.0-46.0); Hemoglobin 15.7 g/dL (12.2-16.2); Lymphocytes # (auto) 0.8 10 ^3/uL (0.4-5.4); Lymphocytes % (auto) 8.9 % (10.0-50.0); Mean Corpuscular Hemoglobin 32.7 pg (28.0-32.0); Mean Corpuscular Hgb Conc. 34.7 g/dL (32.0-36.0); Mean Corpuscular Volume 94.3 fL (80.0-100.0); Monocytes # (auto) 0.5 10 ^3/uL (0-1.3); Monocytes % (auto) 5.3 % (0.0-12.0); Neutrophils # (auto) 7.9 10 ^3/uL (1.6-8.6); Neutrophils % (auto) 85.7 % (37.0-80.0); Nucleated Red Blood Cells % 0.1 %; Platelet Count (auto) 125 10^3/uL (140-450); Red Blood Cells 4.79 10^6/uL (4.0-5.20); Red Cell Distribution Width 13.7 % (11.8-14.3); White Blood Cell 9.2 10^3/uL (4.4-10.8)
[2024-11-28] MEDS: LEVOTHYROXINE SODIUM 50 MCG TAB PO SCH (06:11)
[2024-11-28 06:20] LABS: Alanine Aminotransferase 20 U/L (7-40); Albumin 4.4 g/dL (3.2-4.8); Alkaline Phosphatase 114 U/L (46-116); Anion Gap 10 (5-15); Aspartate Aminotransferase 58 U/L (13-40); BUN/Creatinine Ratio 15.1 (10.0-20.0); Blood Urea Nitrogen 16 mg/dL (9-23); Calcium 10.1 mg/dL (8.7-10.4); Carbon Dioxide 24 mmol/L (20-31); Chloride 106 mmol/L (98-107); Glucose 148 mg/dL (74-106); Potassium 4.4 mmol/L (3.5-5.1); Sodium 140 mmol/L (136-145); Total Protein 7.3 g/dL (5.7-8.2)
[2024-11-28] MEDS: hydrALAZINE HCL 20 MG/ML VL IV PRN (06:23)
[2024-11-28 06:30] LABS: Bilirubin, Total 0.5 mg/dL (0.2-1.0)
--- NOTE | 2024-11-28 09:20 | DVHPN2 ---
Reviewed: Care Plan, H&P, Labs, Medications, Previous Orders, Radiology Changes from previous H/P or p: No Changes Eyes: No Pain, No Vision change, No Conjunctivae inflammation, No Eyelid inflammation, No Other, No Redness ENT: No Ear pain, No Ear discharge, No Nose pain, No Nose discharge, No Nose congestion, No Mouth pain, No Mouth swelling, No Throat pain, No Throat swelling, No Other Cardiovascular: No Chest Pain, No Palpitations, No Orthopnea, No Paroxysmal Noc. Dyspnea, No Edema, No Lt Headedness, No Other Respiratory: Cough; No Dry; Shortness of breath; No SOB with excertion, No Wheezing, No Hemoptysis, No Pleuritic Pain, No Sputum, No Other Gastrointestinal: No Nausea, No Vomiting, No Abdominal Pain, No Diarrhea, No Constipation, No Melena, No Hematochezia, No Other Genitourinary: No Dysuria, No Frequency, No Incontinence, No Hematuria, No Retention, No Other Musculoskeletal: No other, No neck pain, No shoulder pain, No arm pain, No back pain, No hand pain, No leg pain, No foot pain Skin: No Rash, No Lesions, No Jaundice, No Bruising, No Other Objective Vitals Vital Signs Date Time Temp Pulse Resp B/P (MAP) Pulse Ox O2 Delivery O2 Flow Rate FiO2 11/28/24 07:20 97 Room Air 0.0 11/28/24 07:20 21 11/28/24 07:20 78 18 11/28/24 06:23 156/76 11/28/24 05:00 98.0 98.0 Intake/Output Intake and Output 11/28/24 07:00 Intake Total 0 ml Output Total 620 ml Balance -620 ml Intake Oral 0 ml Output Urine Total 620 ml Medications Current Medications Medications Dose Ordered Sig/Yenni Route Start Time Stop Time Status Last Admin Dose Admin Zinc Sulfate 220 mg DAILY PO 11/27/24 10:00 11/27/24 10:28 220 MG Albuterol 90 mcg TIDPRN PRN IN 11/27/24 04:45 11/28/24 07:20 90 MCG Budesonide 360 mcg BID IN 11/27/24 10:00 11/28/24 07:19 360 MCG Dexamethasone Sodium Phosphate 6 mg DAILY IV 11/27/24 10:00 12/07/24 09:59 11/27/24 10:27 6 MG Enoxaparin Sodium 40 mg DAILY SC 11/27/24 10:00 Sodium Chloride 10 ml Q8HR IV 11/27/24 06:00 11/28/24 06:24 10 ML Acetaminophen/ Hydrocodone Bitart 1 tab Q4HP PRN PO 11/27/24 04:45 Ondansetron HCl 4 mg Q4HP PRN IV 11/27/24 04:45 Docusate Sodium 100 mg BIDPRN PRN PO 11/27/24 04:45 Ascorbic Acid 500 mg BID PO 11/27/24 10:00 11/27/24 22:15 500 MG Multivitamins 1 tab DAILY PO 11/27/24 10:00 11/27/24 10:29 1 TAB Acetaminophen 650 mg Q6HP PRN PO 11/27/24 04:45 Nitroglycerin 0.4 mg Q5MINP PRN SL 11/27/24 04:45 Morphine Sulfate 2 mg Q30M PRN IV 11/27/24 04:45 Famotidine 20 mg DAILY IV 11/27/24 10:00 11/27/24 10:27 20 MG Doxycycline Hyclate 100 ml @ 50 mls/hr Q12HR IV 11/27/24 12:45 11/27/24 22:16 50 MLS/HR Levothyroxine Sodium 50 mcg QAM@0600 PO 11/28/24 06:00 11/28/24 06:11 50 MCG Hydralazine HCl 10 mg Q6HR PRN IV 11/28/24 03:00 11/28/24 06:23 10 MG Laboratory Results Laboratory Tests 11/28/24 05:25 Chemistry Test 11/28/24 05:25 Albumin 4.4 g/dL (3.2-4.8) Calcium Level 10.1 mg/dL (8.7-10.4) Total Protein 7.3 g/dL (5.7-8.2) LFT Test 11/28/24 05:25 Alanine Aminotransferase (ALT) 20 U/L (7-40) Alkaline Phosphatase 114 U/L (46-116) Aspartate Amino Transferase (AST) 58 U/L (13-40) H Total Bilirubin 0.5 mg/dL (0.2-1.0) Labs and/or images reviewed: Labs reviewed by me, Image(s) reviewed by me Assessment/Plan Assessment/Plan Acute Respiratory failure: Oxygen by nasal cannula COVID positive: Zinc vitamin-C med neb, dexamethasone Flu Test negative Possible community-acquired pneumonia: Doxycycline Hypertension Hypercholesterolemia Hypothyroidism Elevated D-dimer 0.99 CT chest angiogram rule out PE be done because of the patient's COVID positive status Venous ultrasound ordered rule out DVT Time spent 55 minutes Plan discussed with: Patient My Orders Orders - JC SAN MD Procedure Category Date Status Time Doxycycline PHA 11/27/24 In Process 100mg/100ml 12:45 Levothyroxine Tablet PHA 11/28/24 In Process (Synthroid Tablet) 06:00 Date of Service: Nov 28, 2024 Billing Provider: JC SAN MD Common Visit Codes: [id number] INP/OBS CARE(HIGH) JC SAN MD Nov 28, 2024 09:20
--- NOTE | 2024-11-28 10:48 | DVH ---
EXAM: US Duplex Bilateral Lower Extremities Veins CLINICAL INDICATION: Rule out DVT TECHNIQUE: Real-time duplex ultrasound scan of the bilateral lower extremity veins integrating B-mod e two-dimensional vascular structure, Doppler spectral analysis, color flow Doppler imaging and compr ession. COMPARISON: None FINDINGS: RIGHT DEEP VEINS: Unremarkable. No DVT in the right common femoral, femoral, proximal deep femoral or popliteal veins. The veins demonstrate normal color flow, are normally compressible, with normal phasic flow and/or augmentation response. RIGHT SUPERFICIAL VEINS: Unremarkable. No thrombus in the visualized right great saphenous vein. LEFT DEEP VEINS: Unremarkable. No DVT in the left common femoral, femoral, proximal deep femoral o r popliteal veins. The veins demonstrate normal color flow, are normally compressible, with normal p hasic flow and/or augmentation response. LEFT SUPERFICIAL VEINS: Unremarkable. No thrombus in the visualized left great saphenous vein. SOFT TISSUES: No acute findings. No popliteal cyst. OTHER FINDINGS: . None. . . .. IMPRESSION: No DVT.
[2024-11-28] MEDS: ACETAMINOPHEN 325 MG TAB PO PRN (17:04)
--- NOTE | 2024-11-28 21:13 | DVHINCON2 ---
Date of service: Nov 28, 2024 Referring Physician Bird Riley MD Reason for Consultation COVID-19 infection, bronchitis History of Present Illness An 79-year-old woman with past medical history of hypertension, hyperlipidemia, thyroid disease, hx of nephrectomy, and bronchitis who presented to ED on 11/26/24 accompanied by daughter with complaint of shortness of breath. Patient reported symptoms progressively worsened with nonproductive cough, headache, fever that prompted this visit. ED workup showed WBC of 6.4, platelets 110, sodium 139, potassium 3.6, BUN 7, creatinine 1.00, GFR 57, glucose 117, troponin 10, BNP 123.75. Blood pressure was 146/69, heart rate 84, temperature 100.4 F, O2 saturation 96% on oxygen. Serology returned positive for COVID-19 viral infect ion. Chest x-ray showed no acute cardiopulmonary process. Patient was admitted for further care and pulmonary consultation is requested for evaluation and management due to the above findings. Review of Systems: 14-point review of systems negative unless otherwise noted above. Past Medical History: Hypertension, hyperlipidemia, thyroid disease, bronchitis. Past Surgical History: Nephrectomy Medications: Reviewed. Allergies: No known drug allergies. Family History: Congestive heart failure Liver cancer Ulcerative colitis Social History: Nonsmoker. No alcohol or illicit drug use. Family History: FH: CHF (congestive heart failure) G8 MOTHER FH: liver cancer G8 FATHER Ulcerative colitis G8 MOTHER Allergies: Coded Allergies: NO KNOWN ALLERGIES (Unverified , 08/20/23) Home Meds Active Scripts Promethazine-Dm (Promethazine Dm 6.25-15 mg/5Ml) 1 Rhoda Rhoda, 5 ML PO TID, #180 ML Prov:MICHEL BETHEA 06/15/23 Prednisone (Prednisone) 20 Mg Tab, 60 MG PO DAILY, #15 MG Prov:MICHEL BETHEA 06/15/23 Levofloxacin Hemihydrate (LEVAQUIN 500 MG) 500 Mg Tab, 1 TAB PO DAILY, #10 TAB Prov:MICHEL BETHEA 06/15/23 Cephalexin (KEFLEX 500) 500 Mg Cap, 1 CAP PO Q8HR for 7 Days, #21 CAP Prov:FUENTES SCHMIDT DO 05/12/22 Reported Medications Atorvastatin Calcium (ATORVASTATIN CALCIUM) 10 Mg Tab, 1 TAB PO DAILY, #30 TAB 5 Refills 11/27/24 Tramadol Hcl (Tramadol Hcl) 50 Mg Tab, 0.5 TAB PO BIDPRN PRN for pain 11/27/24 Memantine Hydrochloride (Memantine HCl) 5 Mg Tab, 1 TAB PO DAILY 11/27/24 Loratadine (Sb Loratadine Allergy Rel) 10 Mg Tab, 10 MG PO DAILY, TAB 03/05/17 Levothyroxine Sodium (Levothyroxine Sodium) 50 Mcg Tab, 50 MCG PO QAM for 30 Days, MCG 04/27/16 Discontinued Reported Medications Naproxen Sodium (Aleve) 220 Mg Cap, 220 MG PO DAILY, CAP 03/05/17 Simvastatin (Simvastatin) 10 Mg Tab, 10 MG PO DAILY for 30 Days, MG 04/27/16 Current Medications Current Medications Medications (Trade) Dose Ordered Sig/Yenni Route PRN Reason Start Time Stop Time Status Last Admin Levothyroxine Sodium (Synthroid Tablet) 50 mcg QAM@0600 PO 11/28/24 06:00 11/28/24 06:11 Hydralazine HCl (Apresoline Injection) 10 mg Q6HR PRN IV SBP>150 11/28/24 03:00 11/28/24 17:05 Vital Signs Vital Signs Date Time Temp Pulse Resp B/P (MAP) Pulse Ox O2 Delivery O2 Flow Rate FiO2 11/28/24 20:00 82 18 94 Room Air* 0 21 11/28/24 17:05 153/73 11/28/24 16:48 97.9 97.9 Physical Exam Gen.: Patient lying in bed in no apparent distress. Breathing on room air. Head: Normocephalic, atraumatic. Eyes: EOMI/PERRLA. Ears: Normal hearing. Normal anatomy. Neck/trachea: Trachea midline, supple. Nose: Normal external anatomy. Mouth: Moist mucous membranes. Chest: Decreased air entry bilaterally. No wheezing or rhonchi. Cardiovascular: Positive S1, positive S2. Regular rate and rhythm. Abdomen: Positive bowel sounds in all 4 quadrants. Soft, non-tender, non- distended. : Deferred. Rectal: Deferred. Skin: Warm, dry. Intact. Extremities: 2+ radial pulses bilaterally. No lower extremity edema. Neuro: Awake, alert, oriented x3. No gross motor or sensory deficits. Cranial nerves II through XII intact. Gait not assessed. Labs/Diagnostic Data Labs Test 11/28/24 05:25 11/27/24 05:28 11/27/24 02:16 11/26/24 23:08 Range/Units White Blood Count 9.2 # 4.4-10.8 10^3/uL Red Blood Count 4.79 4.0-5.20 10^6/uL Hemoglobin 15.7 12.2-16.2 g/dL Hematocrit 45.2 36.0-46.0 % Mean Corpuscular Volume 94.3 80.0-100.0 fL Mean Corpuscular Hemoglobin 32.7 H 28.0-32.0 pg Mean Corpuscular Hemoglobin Concent 34.7 32.0-36.0 g/dL Red Cell Distribution Width 13.7 11.8-14.3 % Platelet Count 125 L 140-450 10^3/uL Mean Platelet Volume 9.4 6.9-10.8 fL Neutrophils (%) (Auto) 85.7 H 37.0-80.0 % Lymphocytes (%) (Auto) 8.9 L 10.0-50.0 % Monocytes (%) (Auto) 5.3 0.0-12.0 % Eosinophils (%) (Auto) 0.0 0.0-7.0 % Basophils (%) (Auto) 0.1 0.0-2.0 % Neutrophils # (Auto) 7.9 1.6-8.6 10 ^3/uL Lymphocytes # (Auto) 0.8 0.4-5.4 10 ^3/uL Monocytes # (Auto) 0.5 0-1.3 10 ^3/uL Eosinophils # (Auto) 0 0-0.8 10 ^3/uL Basophils # (Auto) 0 0-0.2 10 ^3/uL Nucleated Red Blood Cells 0.1 % Sodium Level 140 136-145 mmol/L Potassium Level 4.4 3.5-5.1 mmol/L Chloride Level 106 98-107 mmol/L Carbon Dioxide Level 24 20-31 mmol/L Anion Gap 10 5-15 Blood Urea Nitrogen 16 9-23 mg/dL Creatinine 1.06 H 0.550-1.02 mg/dL Glomerular Filtration Rate Calc 53 >90 mL/min BUN/Creatinine Ratio 15.1 10.0-20.0 Serum Glucose 148 H 74-106 mg/dL Calcium Level 10.1 8.7-10.4 mg/dL Total Bilirubin 0.5 0.2-1.0 mg/dL Aspartate Amino Transferase (AST) 58 H 13-40 U/L Alanine Aminotransferase (ALT) 20 7-40 U/L Alkaline Phosphatase 114 46-116 U/L Total Protein 7.3 5.7-8.2 g/dL Albumin 4.4 3.2-4.8 g/dL D-Dimer, Quantitative 0.99 H 0.0-0.49 mg/L FEU Influenza Type A Antigen Negative Negative Influenza Type B Antigen Negative Negative SARS-CoV-2 Antigen (Rapid) Positive NEGATIVE Blood Gas Specimen Type Arterial Blood Gas Sample Site Right radial Blood Gas Patient Temperature 37.0 Arterial Blood Date Drawn [id number] Arterial Blood pH 7.495 H 7.350-7.450 Arterial Blood Partial Pressure CO2 26.3 L 32.0-45.0 mmHg Arterial Blood Partial Pressure O2 84.1 83.0-108.0 mmHg Arterial Blood HCO3 19.8 L 21.0-28.0 mmol/L Arterial Blood Oxygen Saturation 96.9 94.0-98.0 % Arterial Blood Base Excess -1.6 -2.0-3.0 mmol/L Arterial Blood Oxyhemoglobin 95.6 94.0-98.0 % Arterial Blood Carboxyhemoglobin 0.6 0.5-1.5 % Arterial Blood Methemoglobin 0.7 0.0-1.5 % Naresh Test Yes Blood Gas Total Hemoglobin 15.80 12.0-16.0 g/dL Blood Gas Modality Room air Blood Gas Spontaneous Rate 18 FiO2 % 21.0 Test 11/26/24 22:25 11/26/24 21:01 Range/Units Troponin I High Sensitivity 10 </=34 ng/L Lactic Acid Level 1.2 0.4-2.0 mmol/L Magnesium Level 1.9 1.6-2.6 mg/dL B-Type Natriuretic Peptide 123.75 0-100 pg/mL Assessment Impression: COVID-19 infection Bronchitis Hypertension Hyperlipidemia Coronary artery disease w/ stents Obesity BMI 30 Plan: Supplemental oxygen PRN Titrate to keep O2 sats above 92%. Venous duplex ultrasound of BLE reveals no e/o DVT. CXR reviewed, demonstrates no acute cardiopulmonary process. Continue bronchodilators/Pulmicort IV steroids Continue antibiotics Vitamin supplementation Incentive spirometry Monitor renal function. Monitor electrolytes. Supplement as necessary. Monitor ins and outs. Diet and lifestyle modifications for weight reduction Obesity complicates all care. GI prophylaxis - Pepcid DVT prophylaxis - Lovenox SC. Prognosis: Poor given patient's multiple co-morbidities. Rest of plan per hospitalist and other consultants. A total of 76 minutes of clinical care time was spent reviewing the patient record, examining the patient, making a diagnostic and therapeutic plan, discussing this plan with the medical personnel, following up on diagnostic studies and following the patient for clinical stability excluding any and all procedures. At least 50% of this time was spent in direct, [id number] contact. Thank you, Dr. Riley, for allowing me to participate in this patient's care. Further recommendations will depend on the patient's clinical course. Please do not hesitate to contact me if you have any questions or concerns. This medical document was created using an electronic medical record system with [employer] dictation system. Although these documentations are being carefully reviewed, there may still be some phonetic and typographical changes. The errors are purely typographical, due to imperfection on the software program, and do not reflect any compromise in the patient's medical care. Plan discussed with: Patient, Other (KARLENE Flores/MD Riley) EMILE HILL MD Nov 28, 2024 21:13
[2024-11-29] VITALS (12 sets, daily range): BP systolic 111–160; BP diastolic 59–75; PULSE 48–82; RESP 16–20; TEMP 97.7–98.3; O2SAT 92–98
--- NOTE | 2024-11-29 10:46 | DVHPN2 ---
Reviewed: Care Plan, H&P, Labs, Medications, Previous Orders, Radiology Changes from previous H/P or p: No Changes Eyes: No Pain, No Vision change, No Conjunctivae inflammation, No Eyelid inflammation, No Other, No Redness ENT: No Ear pain, No Ear discharge, No Nose pain, No Nose discharge, No Nose congestion, No Mouth pain, No Mouth swelling, No Throat pain, No Throat swelling, No Other Cardiovascular: No Chest Pain, No Palpitations, No Orthopnea, No Paroxysmal Noc. Dyspnea, No Edema, No Lt Headedness, No Other Respiratory: Cough; No Dry; Shortness of breath; No SOB with excertion, No Wheezing, No Hemoptysis, No Pleuritic Pain, No Sputum, No Other Gastrointestinal: No Nausea, No Vomiting, No Abdominal Pain, No Diarrhea, No Constipation, No Melena, No Hematochezia, No Other Genitourinary: No Dysuria, No Frequency, No Incontinence, No Hematuria, No Retention, No Other Musculoskeletal: No other, No neck pain, No shoulder pain, No arm pain, No back pain, No hand pain, No leg pain, No foot pain Skin: No Rash, No Lesions, No Jaundice, No Bruising, No Other Objective Vitals Vital Signs Date Time Temp Pulse Resp B/P (MAP) Pulse Ox O2 Delivery O2 Flow Rate FiO2 11/29/24 10:00 94 Room Air 11/29/24 10:00 0 21 11/29/24 08:00 82 18 11/29/24 05:00 97.8 111/71 (84) 97.8 Intake/Output Intake and Output 11/29/24 07:00 Intake Total 1000 ml Balance 1000 ml Intake Oral 800 ml IV Total 200 ml # Voids 6 Medications Current Medications Medications Dose Ordered Sig/Yenni Route Start Time Stop Time Status Last Admin Dose Admin Zinc Sulfate 220 mg DAILY PO 11/27/24 10:00 11/29/24 08:58 220 MG Albuterol 90 mcg TIDPRN PRN IN 11/27/24 04:45 11/28/24 14:15 90 MCG Budesonide 360 mcg BID IN 11/27/24 10:00 11/28/24 22:00 360 MCG Dexamethasone Sodium Phosphate 6 mg DAILY IV 11/27/24 10:00 12/07/24 09:59 11/29/24 08:59 6 MG Enoxaparin Sodium 40 mg DAILY SC 11/27/24 10:00 11/29/24 08:59 40 MG Sodium Chloride 10 ml Q8HR IV 11/27/24 06:00 11/29/24 05:54 10 ML Acetaminophen/ Hydrocodone Bitart 1 tab Q4HP PRN PO 11/27/24 04:45 Ondansetron HCl 4 mg Q4HP PRN IV 11/27/24 04:45 Docusate Sodium 100 mg BIDPRN PRN PO 11/27/24 04:45 Ascorbic Acid 500 mg BID PO 11/27/24 10:00 11/29/24 08:58 500 MG Multivitamins 1 tab DAILY PO 11/27/24 10:00 11/29/24 08:58 1 TAB Acetaminophen 650 mg Q6HP PRN PO 11/27/24 04:45 11/28/24 17:04 650 MG Nitroglycerin 0.4 mg Q5MINP PRN SL 11/27/24 04:45 Morphine Sulfate 2 mg Q30M PRN IV 11/27/24 04:45 Famotidine 20 mg DAILY IV 11/27/24 10:00 11/29/24 08:59 20 MG Doxycycline Hyclate 100 ml @ 50 mls/hr Q12HR IV 11/27/24 12:45 11/29/24 09:03 50 MLS/HR Levothyroxine Sodium 50 mcg QAM@0600 PO 11/28/24 06:00 11/29/24 05:51 50 MCG Hydralazine HCl 10 mg Q6HR PRN IV 11/28/24 03:00 11/28/24 17:05 10 MG Laboratory Results Laboratory Tests 11/28/24 05:25 Labs and/or images reviewed: Labs reviewed by me, Image(s) reviewed by me Assessment/Plan Assessment/Plan Acute Respiratory failure: Oxygen by nasal cannula COVID positive: Zinc vitamin-C med neb, dexamethasone consult by pulmonology Dr. Virk appreciated Flu Test negative Possible community-acquired pneumonia: Doxycycline Hypertension Hypercholesterolemia Hypothyroidism Elevated D-dimer 0.99 CT chest angiogram rule out PE could not be done because of the patient's COVID positive status DVT ruled out Time spent 55 minutes Will DC tomorrow Plan discussed with: Patient Date of Service: Nov 29, 2024 Billing Provider: JC SAN MD Common Visit Codes: [id number] INP/OBS CARE(HIGH) JC SAN MD Nov 29, 2024 10:46
--- NOTE | 2024-11-29 23:05 | DVHPN2 ---
Progress Note - Dictate Date Seen: Nov 29, 2024 Medical Necessity Reason Pt with a Central, PICC or Fol: No Subjective Patient seen and examined at bedside. Breathing comfortably on room air. Overnight events reviewed. vital signs Vital Sign Date Time Temp Pulse Resp B/P (MAP) Pulse Ox O2 Delivery O2 Flow Rate FiO2 11/29/24 21:00 98.3 48 20 133/64 (87) 94 98.3 11/29/24 20:00 Room Air* 0 21 Total Intake and Output 11/28/24 11/28/24 11/29/24 15:00 23:00 07:00 Intake Total 100 ml 500 ml 400 ml Balance 100 ml 500 ml 400 ml medications Current Medications Medications Dose Ordered Sig/Yenni Route Start Time Stop Time Status Last Admin Dose Admin Zinc Sulfate 220 mg DAILY PO 11/27/24 10:00 11/29/24 08:58 220 MG Albuterol 90 mcg TIDPRN PRN IN 11/27/24 04:45 11/28/24 14:15 90 MCG Budesonide 360 mcg BID IN 11/27/24 10:00 11/29/24 11:01 360 MCG Dexamethasone Sodium Phosphate 6 mg DAILY IV 11/27/24 10:00 12/07/24 09:59 11/29/24 08:59 6 MG Enoxaparin Sodium 40 mg DAILY SC 11/27/24 10:00 11/29/24 08:59 40 MG Sodium Chloride 10 ml Q8HR IV 11/27/24 06:00 11/29/24 11:26 10 ML Acetaminophen/ Hydrocodone Bitart 1 tab Q4HP PRN PO 11/27/24 04:45 Ondansetron HCl 4 mg Q4HP PRN IV 11/27/24 04:45 Docusate Sodium 100 mg BIDPRN PRN PO 11/27/24 04:45 Ascorbic Acid 500 mg BID PO 11/27/24 10:00 11/29/24 22:39 500 MG Multivitamins 1 tab DAILY PO 11/27/24 10:00 11/29/24 08:58 1 TAB Acetaminophen 650 mg Q6HP PRN PO 11/27/24 04:45 11/28/24 17:04 650 MG Nitroglycerin 0.4 mg Q5MINP PRN SL 11/27/24 04:45 Morphine Sulfate 2 mg Q30M PRN IV 11/27/24 04:45 Famotidine 20 mg DAILY IV 11/27/24 10:00 11/29/24 08:59 20 MG Doxycycline Hyclate 100 ml @ 50 mls/hr Q12HR IV 11/27/24 12:45 11/29/24 22:39 50 MLS/HR Levothyroxine Sodium 50 mcg QAM@0600 PO 11/28/24 06:00 11/29/24 05:51 50 MCG Hydralazine HCl 10 mg Q6HR PRN IV 11/28/24 03:00 11/28/24 17:05 10 MG objective Gen.: Patient lying in bed in no apparent distress. Breathing on room air. Head: Normocephalic, atraumatic. Eyes: EOMI/PERRLA. Ears: Normal hearing. Normal anatomy. Neck/trachea: Trachea midline, supple. Nose: Normal external anatomy. Mouth: Moist mucous membranes. Chest: Decreased air entry bilaterally. No wheezing or rhonchi. Cardiovascular: Positive S1, positive S2. Regular rate and rhythm. Abdomen: Positive bowel sounds in all 4 quadrants. Soft, non-tender, non- distended. : Deferred. Rectal: Deferred. Skin: Warm, dry. Intact. Extremities: 2+ radial pulses bilaterally. No lower extremity edema. Neuro: Awake, alert, oriented x3. No gross motor or sensory deficits. Cranial nerves II through XII intact. Gait not assessed. laboratory and microbiology Laboratory Tests 11/28/24 05:25 Test 11/28/24 05:25 Range/Units Serum Glucose 148 H 74-106 mg/dL Assessment/Plan Impression: COVID-19 infection Bronchitis Hypertension Hyperlipidemia Coronary artery disease w/ stents Obesity BMI 30 Events: Remains on room air Supplemental oxygen PRN Continue bronchodilators/HFA Continue antibiotics Continue steroids - Decadron course Labs and imaging reviewed. Rest of plan as noted below. Plan: Supplemental oxygen PRN Titrate to keep O2 sats above 92%. Venous duplex ultrasound of BLE reveals no e/o DVT. CXR reviewed, demonstrates no acute cardiopulmonary process. Continue bronchodilators/Pulmicort IV steroids Continue antibiotics Vitamin supplementation Incentive spirometry Monitor renal function. Monitor electrolytes. Supplement as necessary. Monitor ins and outs. Diet and lifestyle modifications for weight reduction Obesity complicates all care. GI prophylaxis - Pepcid DVT prophylaxis - Lovenox SC. Prognosis: Poor given patient's multiple co-morbidities. Rest of plan per hospitalist and other consultants. A total of 51 minutes of clinical care time was spent reviewing the patient record, examining the patient, making a diagnostic and therapeutic plan, discussing this plan with the medical personnel, following up on diagnostic studies and following the patient for clinical stability excluding any and all procedures. At least 50% of this time was spent in direct, [id number] contact. Thank you, Dr. Riley, for allowing me to participate in this patient's care. Further recommendations will depend on the patient's clinical course. Please do not hesitate to contact me if you have any questions or concerns. This medical document was created using an electronic medical record system with [employer] computerized dictation system. Although these documentations are being carefully reviewed, there may still be some phonetic and typographical changes. The errors are purely typographical, due to imperfection on the software program, and do not reflect any compromise in the patient's medical care. Plan discussed with: Patient, Other (RN Ty) EMILE HILL MD Nov 29, 2024 23:05
[2024-11-30] VITALS (8 sets, daily range): BP systolic 111–137; BP diastolic 54–73; PULSE 49–68; RESP 16–20; TEMP 97.4–98.3; O2SAT 95–98
[2024-11-30] MEDS ORDERED: BUDESONIDE (INHALATION) 0.5 MG/2 ML NEB ONE (09:11)
[2024-11-30] MEDS: HYDROcodone-ACET 5/325MG TAB PO PRN (10:10)
[2024-11-30] MEDS ORDERED: CHOL500046 PO (12:38)
[2024-11-30] MEDS ORDERED: ASCO500C49 PO (12:38)
[2024-11-30] MEDS ORDERED: DOXY100C79 PO (12:38)
[2024-11-30] MEDS ORDERED: ZINC220C10 PO (12:39)
--- NOTE | 2024-11-30 12:42 | DVHDS2 ---
Discharge Summary Date of Admission Nov 27, 2024 at 04:33 Date of Discharge: Nov 30, 2024 Admitting Diagnosis Shortness of breath Wounds: None Labs/Diagnostic Data: Laboratory Results Test 11/28/24 05:25 11/27/24 05:28 11/27/24 02:16 11/26/24 23:08 White Blood Count 9.2 10^3/uL (4.4-10.8) Red Blood Count 4.79 10^6/uL (4.0-5.20) Hemoglobin 15.7 g/dL (12.2-16.2) Hematocrit 45.2 % (36.0-46.0) Mean Corpuscular Volume 94.3 fL (80.0-100.0) Mean Corpuscular Hemoglobin 32.7 pg (28.0-32.0) Mean Corpuscular Hemoglobin Concent 34.7 g/dL (32.0-36.0) Red Cell Distribution Width 13.7 % (11.8-14.3) Platelet Count 125 10^3/uL (140-450) Mean Platelet Volume 9.4 fL (6.9-10.8) Neutrophils (%) (Auto) 85.7 % (37.0-80.0) Lymphocytes (%) (Auto) 8.9 % (10.0-50.0) Monocytes (%) (Auto) 5.3 % (0.0-12.0) Eosinophils (%) (Auto) 0.0 % (0.0-7.0) Basophils (%) (Auto) 0.1 % (0.0-2.0) Neutrophils # (Auto) 7.9 10 ^3/uL (1.6-8.6) Lymphocytes # (Auto) 0.8 10 ^3/uL (0.4-5.4) Monocytes # (Auto) 0.5 10 ^3/uL (0-1.3) Eosinophils # (Auto) 0 10 ^3/uL (0-0.8) Basophils # (Auto) 0 10 ^3/uL (0-0.2) Nucleated Red Blood Cells 0.1 % Sodium Level 140 mmol/L (136-145) Potassium Level 4.4 mmol/L (3.5-5.1) Chloride Level 106 mmol/L (98-107) Carbon Dioxide Level 24 mmol/L (20-31) Anion Gap 10 (5-15) Blood Urea Nitrogen 16 mg/dL (9-23) Creatinine 1.06 mg/dL (0.550-1.02) Glomerular Filtration Rate Calc 53 mL/min (>90) BUN/Creatinine Ratio 15.1 (10.0-20.0) Serum Glucose 148 mg/dL (74-106) Calcium Level 10.1 mg/dL (8.7-10.4) Total Bilirubin 0.5 mg/dL (0.2-1.0) Aspartate Amino Transferase (AST) 58 U/L (13-40) Alanine Aminotransferase (ALT) 20 U/L (7-40) Alkaline Phosphatase 114 U/L (46-116) Total Protein 7.3 g/dL (5.7-8.2) Albumin 4.4 g/dL (3.2-4.8) D-Dimer, Quantitative 0.99 mg/L FEU (0.0-0.49) Influenza Type A Antigen Negative (Negative) Influenza Type B Antigen Negative (Negative) SARS-CoV-2 Antigen (Rapid) Positive (NEGATIVE) Blood Gas Specimen Type Arterial Blood Gas Sample Site Right radial Blood Gas Patient Temperature 37.0 Arterial Blood Date Drawn [id number] Arterial Blood pH 7.495 (7.350-7.450) Arterial Blood Partial Pressure CO2 26.3 mmHg (32.0-45.0) Arterial Blood Partial Pressure O2 84.1 mmHg (83.0-108.0) Arterial Blood HCO3 19.8 mmol/L (21.0-28.0) Arterial Blood Oxygen Saturation 96.9 % (94.0-98.0) Arterial Blood Base Excess -1.6 mmol/L (-2.0-3.0) Arterial Blood Oxyhemoglobin 95.6 % (94.0-98.0) Arterial Blood Carboxyhemoglobin 0.6 % (0.5-1.5) Arterial Blood Methemoglobin 0.7 % (0.0-1.5) Naresh Test Yes Blood Gas Total Hemoglobin 15.80 g/dL (12.0-16.0) Blood Gas Modality Room air Blood Gas Spontaneous Rate 18 FiO2 % 21.0 Test 11/26/24 22:25 11/26/24 21:01 Troponin I High Sensitivity 10 ng/L (</=34) Lactic Acid Level 1.2 mmol/L (0.4-2.0) Magnesium Level 1.9 mg/dL (1.6-2.6) B-Type Natriuretic Peptide 123.75 pg/mL (0-100) Other Laboratory Tests 11/28/24 05:25 Brief Hx & Hospital Course: 79-year-old female with a history of hypertension hypercholesterolemia hypothyroidism came in for generalized weakness and shortness of breaths found to have COVID positive pneumonia treated with a zinc vitamin-C doxycycline dexamethasone pulmonary consult by Dr. Virk flu test is negative at the time of discharge patient is on room air afebrile stable vital signs without any shortness of breath and willing to go home. Discharged home on doxycycline zinc vitamin-C vitamin D3. She will follow up with the primary Dr. Consults/Reason for consult Pulmonology Dr. Virk Operations or Procedures Chest x-ray Condition at Discharge: Fair Final Diagnosis/Problems List Acute Respiratory failure: Oxygen by nasal cannula COVID positive: Zinc vitamin-C med neb, dexamethasone consult by pulmonology Dr. Virk appreciated Flu Test negative Possible community-acquired pneumonia: Doxycycline Hypertension Hypercholesterolemia Hypothyroidism Elevated D-dimer 0.99 CT chest angiogram rule out PE could not be done because of the patient's COVID positive status DVT ruled out Discharge Disposition: Home Discharge Instruct/Medications Diet: Cardiac 2g Na,low cholest Activity: Light activity Follow Up/Referral: Follow up with your primary Dr in one week Resume all previous home meds Medications: Doxycycline Vitamin-C Vitamin D3 Zinc Transmitted to pharmacy 36 (Time taken for discharge summary 36 minutes) Discharge Statement: "Patient was advised to return to the ER or call 911 if any headaches, dizziness, shortness of breath, chest pain, abdominal pain, bleeding, fevers, or worsening of medical condition. Patient was counseled about treatment plan, medications, possible side effects, patientverbalized understanding. All questions were answered to the best of my ability. This discharge took greater then 30 minutes in planning, reviewing documentation, counseling the patient, and discussing with other team members." ASSESSMENT ASSESSMENT Hospital Course Improved Assessment Acute Respiratory failure: Oxygen by nasal cannula COVID positive: Zinc vitamin-C med neb, dexamethasone consult by pulmonology Dr. Virk appreciated Flu Test negative Possible community-acquired pneumonia: Doxycycline Hypertension Hypercholesterolemia Hypothyroidism Elevated D-dimer 0.99 CT chest angiogram rule out PE could not be done because of the patient's COVID positive status DVT ruled out Date of Service: Nov 30, 2024 Billing Provider: JC SAN MD Common Visit Codes: 69895-PQQ/OBS DISCH DAY >30min JC SAN MD Nov 30, 2024 12:42
--- NOTE | 2024-11-30 20:37 | DVHPN2 ---
Progress Note - Dictate Date Seen: Nov 30, 2024 Medical Necessity Reason Pt with a Central, PICC or Fol: No Subjective Patient seen and examined at bedside. Breathing comfortably on room air. Overnight events reviewed. vital signs Vital Sign Date Time Temp Pulse Resp B/P (MAP) Pulse Ox O2 Delivery O2 Flow Rate FiO2 11/30/24 13:30 98.3 60 16 98 11/30/24 09:51 Room Air* 0 21 11/30/24 09:00 111/64 (80) Total Intake and Output 11/29/24 11/29/24 11/30/24 15:00 23:00 07:00 Intake Total 100 ml 1000 ml 516 ml Balance 100 ml 1000 ml 516 ml objective Gen.: Patient lying in bed in no apparent distress. Breathing on room air. Head: Normocephalic, atraumatic. Eyes: EOMI/PERRLA. Ears: Normal hearing. Normal anatomy. Neck/trachea: Trachea midline, supple. Nose: Normal external anatomy. Mouth: Moist mucous membranes. Chest: Decreased air entry bilaterally. No wheezing or rhonchi. Cardiovascular: Positive S1, positive S2. Regular rate and rhythm. Abdomen: Positive bowel sounds in all 4 quadrants. Soft, non-tender, non- distended. : Deferred. Rectal: Deferred. Skin: Warm, dry. Intact. Extremities: 2+ radial pulses bilaterally. No lower extremity edema. Neuro: Awake, alert, oriented x3. No gross motor or sensory deficits. Cranial nerves II through XII intact. Gait not assessed. laboratory and microbiology Laboratory Tests 11/28/24 05:25 Test 11/28/24 05:25 Range/Units Serum Glucose 148 H 74-106 mg/dL Assessment/Plan Impression: COVID-19 infection Bronchitis Hypertension Hyperlipidemia Coronary artery disease w/ stents Obesity BMI 30 Events: Remains on room air Supplemental oxygen PRN No new complaints. Continue bronchodilators/HFA Continue antibiotics Continue steroids - Decadron course Patient is stable for discharge from the pulmonary standpoint. Disposition per hospitalist. Labs and imaging reviewed. Rest of plan as noted below. Plan: Supplemental oxygen PRN Titrate to keep O2 sats above 92%. Venous duplex ultrasound of BLE reveals no e/o DVT. CXR reviewed, demonstrates no acute cardiopulmonary process. Continue bronchodilators/Pulmicort IV steroids Continue antibiotics Vitamin supplementation Incentive spirometry Monitor renal function. Monitor electrolytes. Supplement as necessary. Monitor ins and outs. Diet and lifestyle modifications for weight reduction Obesity complicates all care. GI prophylaxis - Pepcid DVT prophylaxis - Lovenox SC. Prognosis: Poor given patient's multiple co-morbidities. Rest of plan per hospitalist and other consultants. A total of 51 minutes of clinical care time was spent reviewing the patient record, examining the patient, making a diagnostic and therapeutic plan, discussing this plan with the medical personnel, following up on diagnostic studies and following the patient for clinical stability excluding any and all procedures. At least 50% of this time was spent in direct, [id number] contact. Thank you, Dr. Riley, for allowing me to participate in this patient's care. Further recommendations will depend on the patient's clinical course. Please do not hesitate to contact me if you have any questions or concerns. This medical document was created using an electronic medical record system with [employer] dictation system. Although these documentations are being carefully reviewed, there may still be some phonetic and typographical changes. The errors are purely typographical, due to imperfection on the software program, and do not reflect any compromise in the patient's medical care. Plan discussed with: Patient, Other (KARLENE Schmidt) EMILE HILL MD Nov 30, 2024 20:37
== END 2024-11-30 15:15 | disposition home or self-care (01) | DRG 177 ==
LOC: EDBD 19:50 → ER 19:50 → EDSEX 19:50 → TELE 11-27 04:33 → TELE-EAST 11-27 23:01
PROVIDERS: ADMIT Family Medicine; ATTEND Family Medicine
DX: U07.1 COVID-19 (principal); J12.82 Pneumonia due to coronavirus disease 2019; J96.00 Acute respiratory failure, unspecified whether with hypoxia or hypercapnia; J15.9 Unspecified bacterial pneumonia; E03.9 Hypothyroidism, unspecified; E66.9 Obesity, unspecified; E78.00 Pure hypercholesterolemia, unspecified; J15.69 Pneumonia due to other Gram-negative bacteria; I10 Essential (primary) hypertension; I25.10 Atherosclerotic heart disease of native coronary artery without angina pectoris; J40 Bronchitis, not specified as acute or chronic; Z68.30 Body mass index [BMI] 30.0-30.9, adult; Z80.0 Family history of malignant neoplasm of digestive organs; Z82.49 Family history of ischemic heart disease and other diseases of the circulatory system; Z90.5 Acquired absence of kidney; Z95.5 Presence of coronary angioplasty implant and graft; Z79.899 Other long term (current) drug therapy
CPT/HCPCS: 36415; 36600; 71045; 71046; 80053; 82805; 83605; 83735; 83880; 84484; 85025; 85379; 87426; 87804; 93970; 94640; 96365; 96375; G0378; J1100; J3490